=== PATIENT | male | born 1970 | race Caucasian/White ===

== ENCOUNTER 2020-06-16 17:21 | Inpatient (IN) | payer SELFPAY ==
[~2020-06-16] VITALS: Ht 182.9 cm; Wt 102.0 kg
[2020-06-16 17:56] LABS: BASO % 0 % (0-3); EOS % 0 % (0-3); HEMOGLOBIN 17.1 g/dL (13.0-17.5); LYMPH # 1.2 x10^3/uL (1.0-4.8); LYMPH % 5 % (24-48); MEAN CORPUSCULAR HEMOGLOBIN 31 pg (25-35); MEAN CORPUSCULAR HGB CONC 34 g/dL (31-37); MEAN CORPUSCULAR VOLUME 89 fL (79-100); MONO # 0.9 x10^3/uL (0.0-1.1); MONO % 4 % (0-9); NEUT # 21.7 x10^3/uL (1.8-7.7); NEUT % 91 % (31-73); PLATELET COUNT 199 x10^3/uL (140-400); RED BLOOD COUNT 5.63 x10^6/uL (4.30-5.70); RED CELL DISTRIBUTION WIDTH 13.6 % (11.5-14.5); WHITE BLOOD COUNT 23.8 x10^3/uL (4.0-11.0)
[2020-06-16 18:10] LABS: CALCIUM 9.2 mg/dL (8.5-10.1); CREATININE 1.4 mg/dL (0.7-1.3); GFR 53.6; POTASSIUM 3.6 mmol/L (3.5-5.1)
[2020-06-16 18:15] LABS: % BANDS 1 % (0-9); % LYMPHS 7 % (24-48); % MONOS 1 % (0-10); % SEGS 91 % (35-66); PLT ESTIMATE ADEQUATE (ADEQUATE)
[2020-06-16] MEDS ORDERED: PIPERACILLIN/TAZOBACTAM 3.375 GM in IV NORMAL SALINE 50ML 50 ML IV ONE (18:15)
[2020-06-16] MEDS ORDERED: VANCOMYCIN 1.5 GM in IV NORMAL SALINE 500ML BAG 500 ML IV ONE (18:15)
[2020-06-16] MEDS ORDERED: IV NORMAL SALINE 1000ML BAG 1,000 ML IV ONE ×2 (18:15)
[2020-06-16 18:16] LABS: ALBUMIN 4.3 g/dL (3.4-5.0); ALBUMIN/GLOBULIN RATIO 1.2 (1.0-1.7); MAGNESIUM 2.7 mg/dL (1.8-2.4); TOTAL BILIRUBIN 0.3 mg/dL (0.2-1.0)
[2020-06-16 18:19] LABS: BILIRUBIN,URINE NEGATIVE (NEG); CLARITY,URINE CLOUDY; COLOR,URINE YELLOW; NITRITE,URINE NEGATIVE (NEG); PROTEIN,URINE 30 mg/dL (NEG-TRACE); UROBILINOGEN,URINE 0.2 mg/dL (0.2 mg/dL)
[2020-06-16 18:24] LABS: ACETAMIN < 2 mcg/ml (10-30); ETHANOL < 10 mg/dL (0-10); SALIC < 2.8 mg/dL (2.8-20.0)
[2020-06-16 18:24] LABS: BARBITURATES NEG (NEG); BENZODIAZEPINES NEG (NEG); CANNABINOIDS POS (NEG); COCAINE NEG (NEG); METHADONE NEG (NEG); OPIATES NEG (NEG); PHENCYCLIDINE NEG (NEG)
[2020-06-16 18:25] LABS: AMPHETAMINE/METHAMPHETAMINE NEG (NEG)
--- NOTE | 2020-06-16 18:27 | RAD ---
XR CHEST 1V History: Reason: AMS / Spl. Instructions: / History: Comparison: None. Findings: No consolidation or pleural effusion. Normal heart size. No pneumothorax. Mild elevation the right he midiaphragm. Impression: 1. No acute cardiopulmonary process. Electronically signed by: Breezy Pagan DO (06/16/2020 6:24 PM) [facility] [place]
[2020-06-16 18:28] LABS: AMORPHOUS SEDIMENT,UR PRESENT /HPF; BACTERIA,URINE 0 /HPF (0-FEW); GRANULAR CASTS,URINE MODERATE /HPF; HYALINE CASTS, URINE MODERATE /HPF
[2020-06-16] MEDS ORDERED: VANCOMYCIN 2 GM in IV NORMAL SALINE 500ML BAG 500 ML IV ONE (18:30)
--- NOTE | 2020-06-16 18:42 | RAD ---
CT HEAD AND C-SPINE WO History: Reason: AMS / Spl. Instructions: / History: . Pain Comparison: None. Technique: Noncontrast CT imaging was performed of the head and cervical spine. Coronal and sagittal reconstructions were performed. Exposure: One or more of the following individualized dose reduction techniques were utilized for thi s examination: 1. Automated exposure control 2. Adjustment of the mA and/or kV according to patient size 3. Use of iterative reconstruction technique. Findings: Head CT: No intracranial hemorrhage. No mass effect. No hydrocephalus. Right lateral scalp soft tissue swelling. Imaged orbits are unremarkable. Polypoid mucosal thickening within the right frontal sinus with near complete opacification. Thickening within the right frontal ethmoidal recess. Left frontal sinus muco us retention cyst or polyp. No acute calvarial fracture. Cervical spine CT: Normal vertebral body height and alignment. No fracture. Mild cervical spondylosis most prominent C5-C6. Soft tissues unremarkable. Impression: Head CT: 1. No acute intracranial abnormality. 2. Right frontal sinus disease. Cervical spine CT: 1. No acute fracture or subluxation of the cervical spine. Electronically signed by: Breezy Pagan DO (06/16/2020 6:39 PM) [facility]
[2020-06-16] MEDS ORDERED: cefTRIAXone IV Push 2 GM VIAL. IVP ONE (18:45)
[2020-06-16] MEDS ORDERED: DEXTROSE 5% IV ONE (19:00)
[2020-06-16] MEDS ORDERED: IOHEXOL 350 MG/ML 100 ML VIAL. IV ONE (19:00)
[2020-06-16] MEDS ORDERED: CONTRAST GIVEN. MC PRN (19:00)
[2020-06-16] MEDS ORDERED: ACYCLOVIR SODIUM IV ONE (19:00)
--- NOTE | 2020-06-16 19:09 | EKG ---
[facility] [address] [place] [address] Test Date: 2020-06-16 Test Time: 18:06:22 Pat Name: NIKOLAI BOLTON Department: Room: Gender: M [employer]: : 1970 Requested By: ALAN FISHER Order Number: [id number] Reading MD: Measurements Intervals Marks Rate: 79 P: 43 MA: 172 QRS: 48 QRSD: 90 T: 10 QT: 374 QTc: 435 Interpretive Statements SINUS RHYTHM ATRIAL PREMATURE COMPLEX(ES) OTHERWISE NORMAL ECG RI6.02 No previous ECG available for comparison
--- NOTE | 2020-06-16 19:29 | RAD ---
PQRS Compliance Statement: One or more of the following individualized dose reduction techniques were utilized for this examinat ion: 1. Automated exposure control 2. Adjustment of the mA and/or kV according to patient size 3. Use of iterative reconstruction technique CTA CHEST_ABDOMEN_AND PELVIS 06/16/2020 7:10 PM INDICATION: Sepsis COMPARISON: None available TECHNIQUE: Multiple axial CT angiographic images of the chest, abdomen and pelvis were obtained after the intravenous administration of 90 mL Omnipaque 350. Coronal and sagittal reformats are provided. Maximum intensity projection images are provided. FINDINGS: Inadequate opacification of pulmonary arterial system to assess for distal lobar, segmental and subse gmental pulmonary artery emboli. No main or central pulmonary identified. Heart size is within normal limits. Thyroid gland is normal in appearance. No pathologically enlarged thoracic lymph nodes. Ther e is subsegmental atelectasis in the super segment right lower lobe. No suspicious solid noncalcified pulmonary nodules. No pleural effusions, pulmonary vascular congestion or pneumothorax. No acutely d isplaced rib fractures. Clavicles are intact. Scapula are intact. Sternum is intact. Heart size withi n normal limits. Thoracic aorta is normal in course and caliber. No aortic dissection. Brachiocephali c vessels are patent. Evaluation of the abdomen is limited by artifact associated with patient positioning with arms down. Liver, spleen, adrenal glands, pancreas and gallbladder are normal in appearance. Abdominal aorta is normal in caliber. No suspicious retroperitoneal abnormality is identified. There is no free fluid or free intraperitoneal air. Small and large bowel are normal in caliber. There is no evidence for heidi l obstruction. There are no pericolonic inflammatory changes. A normal, nondilated appendix is visual ized without adjacent inflammatory changes. Simple appearing right renal cyst measures 1.8 cm in inte rpolar right kidney. The kidneys enhance symmetrically. There is no suspicious renal mass. There is n o hydronephrosis. There are no suspected calculi within the kidneys, ureters or urinary bladder. Urin beltran bladder is within normal limits given degree of distention. Prostate and seminal vesicles are nor mal in appearance. No suspicious osseous abnormality is identified. IMPRESSION: 1. No central or main pulmonary embolus with limited evaluation of the lobar, segmental and subsegmen aletha pulmonary arteries. No focal airspace consolidation is identified. 2. No acute abnormality involving the abdomen and pelvis. No bowel obstruction or inflammation. 3. Simple appearing right renal cyst measures 1.8 cm. 4. No abdominal or thoracic aortic aneurysm or dissection. Electronically signed by: Danielle Roberto MD (06/16/2020 7:26 PM) [facility]
[2020-06-16] MEDS ORDERED: fentaNYL PF VIAL 100 MCG/2 ML VIAL IVP ONE (22:30)
[2020-06-16 23:51] LABS: CSF CLARITY CLEAR; CSF COLOR COLORLESS
[2020-06-16 23:52] LABS: CSF RBC COUNT 5 /cmm (Not Established); CSF WBC COUNT 2 /cmm (Not Established)
--- NOTE | 2020-06-16 23:56 | PHYS DOC ---
Past Medical History Past Medical History: Other Additional Past Medical Histor: "MALARIA" Past Surgical History: Other Additional Past Surgical Histo: LYMPH NODE IN GROIN REMOVED Smoking Status: Never Smoker Alcohol Use: Occasionally Adult General Chief Complaint Chief Complaint: TRAUMA ALERT HPI HPI Patient is a 50 year old male with a known past medical history of malaria presents emergency department for altered mental status and a possible fall. Currently EMS the patient was found on the ground after he had been interacting with . Bystanders state that the patient had become dizzy was complaining of some lightheadedness when he fell to the ground and had. Of unresponsiveness. Not sure if the patient had a seizure-like episode the patient does note that he did bite his tongue and on arrival is complaining of headache and neck pain. Unsure source. Patient denies any recent travel, sick contacts, recent fever or illness. Does complain of mild abdominal pain. Review of Systems Review of Systems Constitutional: Denies fever or chills [] Eyes: Denies change in visual acuity, redness, or eye pain [] HENT: Denies nasal congestion or sore throat [] Respiratory: Denies cough or shortness of breath [] Cardiovascular: No additional information not addressed in HPI [] GI: Denies abdominal pain, nausea, vomiting, bloody stools or diarrhea [] : Denies dysuria or hematuria [] Musculoskeletal: Denies back pain or joint pain [] Integument: Denies rash or skin lesions [] Neurologic: Denies headache, focal weakness or sensory changes [] Endocrine: Denies polyuria or polydipsia [] All other systems were reviewed and found to be within normal limits, except as documented in this note. Current Medications Current Medications Current Medications Medications (Trade) Dose Ordered Sig/Neri Start Time Stop Time Status Last Admin Dose Admin Acetaminophen (Tylenol) 1,000 mg 1X ONCE 06/17/20 03:45 06/17/20 03:52 DC 06/17/20 03:48 1,000 MG Acyclovir Sodium 780 mg/Dextrose 265.6 ml @ 265.6 mls/ hr ONCE ONCE 06/16/20 19:00 06/16/20 19:59 DC 06/16/20 19:11 265.6 MLS/HR Ceftriaxone Sodium (Rocephin) 2 gm 1X ONCE 06/16/20 18:45 06/16/20 18:46 DC 06/16/20 19:09 2 GM Fentanyl Citrate (Fentanyl 2ml Vial) 100 mcg 1X ONCE 06/16/20 22:30 06/16/20 22:31 DC 06/16/20 22:32 100 MCG Info (CONTRAST GIVEN -- Rx MONITORING) 1 each PRN DAILY PRN 06/16/20 19:00 06/18/20 18:59 Iohexol (Omnipaque 350 Mg/ml) 90 ml 1X ONCE 06/16/20 19:00 06/16/20 19:01 DC 06/16/20 19:12 90 ML Piperacillin Sod/ Tazobactam Sod 3.375 gm/Sodium Chloride 50 ml @ 100 mls/hr 1X ONCE 06/16/20 18:15 06/16/20 18:37 DC Quinine Sulfate (Qualaquin) 324 mg ONCE ONCE 06/17/20 00:30 06/17/20 00:31 DC 06/17/20 01:07 324 MG Sodium Chloride 1,000 ml @ 1,000 mls/hr 1X ONCE 06/17/20 00:30 06/17/20 01:29 DC 06/17/20 00:40 1,000 MLS/HR Vancomycin HCl 1.5 gm/Sodium Chloride 500 ml @ 250 mls/hr 1X ONCE 06/16/20 18:15 06/16/20 20:14 UNV Vancomycin HCl 2 gm/Sodium Chloride 500 ml @ 250 mls/hr 1X ONCE 06/16/20 18:30 06/16/20 20:29 DC 06/16/20 19:47 250 MLS/HR Allergies Allergies Allergies Coded Allergies Type Severity Reaction Last Updated Verified No Known Drug Allergies 06/16/20 No Physical Exam Physical Exam Constitutional: Well developed, well nourished, no acute distress, non-toxic appearance. [] HENT: Normocephalic, right posterior scalp cephalhematoma, bilateral external ears normal, oropharynx moist, no oral exudates, nose normal. Diffuse facial ecchymosis and swelling with mild petechiae Eyes: PERRLA, EOMI, conjunctiva normal, no discharge. [] Neck: Normal range of motion, midline C4 tenderness, supple, no stridor. [] Cardiovascular:Heart rate regular rhythm, no murmur [] Lungs & Thorax: Bilateral breath sounds clear to auscultation [] Abdomen: Bowel sounds normal, soft, moderate midepigastric tenderness, no masses, no pulsatile masses. [] Skin: Warm, dry, no erythema, no rash. [] Back: No tenderness, no CVA tenderness. [] Extremities: No tenderness, no cyanosis, no clubbing, ROM intact, no edema. [] Neurologic: Alert and oriented X 3, normal motor function, normal sensory function, no focal deficits noted. [] Psychologic: Affect normal, judgement normal, mood normal. [] Current Patient Data Vital Signs Vital Signs Date Time Temp Pulse Resp B/P (MAP) Pulse Ox O2 Delivery O2 Flow Rate FiO2 06/17/20 02:55 84 94 Room Air 06/16/20 23:05 110/55 (73) 06/16/20 22:50 18 06/16/20 17:29 98.7 98.7 Lab Values Laboratory Tests Test 06/16/20 17:45 06/16/20 18:11 06/16/20 22:08 06/16/20 22:52 White Blood Count 23.8 x10^3/uL (4.0-11.0) H Red Blood Count 5.63 x10^6/uL (4.30-5.70) Hemoglobin 17.1 g/dL (13.0-17.5) Hematocrit 50.0 % (39.0-53.0) Mean Corpuscular Volume 89 fL (79-100) Mean Corpuscular Hemoglobin 31 pg (25-35) Mean Corpuscular Hemoglobin Concent 34 g/dL (31-37) Red Cell Distribution Width 13.6 % (11.5-14.5) Platelet Count 199 x10^3/uL (140-400) Neutrophils (%) (Auto) 91 % (31-73) H Lymphocytes (%) (Auto) 5 % (24-48) L Monocytes (%) (Auto) 4 % (0-9) Eosinophils (%) (Auto) 0 % (0-3) Basophils (%) (Auto) 0 % (0-3) Neutrophils # (Auto) 21.7 x10^3/uL (1.8-7.7) H Lymphocytes # (Auto) 1.2 x10^3/uL (1.0-4.8) Monocytes # (Auto) 0.9 x10^3/uL (0.0-1.1) Eosinophils # (Auto) 0.0 x10^3/uL (0.0-0.7) Basophils # (Auto) 0.0 x10^3/uL (0.0-0.2) Segmented Neutrophils % 91 % (35-66) H Band Neutrophils % 1 % (0-9) Lymphocytes % 7 % (24-48) L Monocytes % 1 % (0-10) Platelet Estimate Adequate (ADEQUATE) Sodium Level 138 mmol/L (136-145) Potassium Level 3.6 mmol/L (3.5-5.1) Chloride Level 104 mmol/L (98-107) Carbon Dioxide Level 23 mmol/L (21-32) Anion Gap 11 (6-14) Blood Urea Nitrogen 14 mg/dL (8-26) Creatinine 1.4 mg/dL (0.7-1.3) H Estimated GFR (Cockcroft-Gault) 53.6 BUN/Creatinine Ratio 10 (6-20) Glucose Level 124 mg/dL (70-99) H Lactic Acid Level 3.5 mmol/L (0.4-2.0) H 3.0 mmol/L (0.4-2.0) H Calcium Level 9.2 mg/dL (8.5-10.1) Magnesium Level 2.7 mg/dL (1.8-2.4) H Total Bilirubin 0.3 mg/dL (0.2-1.0) Aspartate Amino Transferase (AST) 100 U/L (15-37) H Alanine Aminotransferase (ALT) 189 U/L (16-63) H Alkaline Phosphatase 106 U/L (46-116) Ammonia 40 mcmol/L (11-34) H Troponin I Quantitative < 0.017 ng/mL (0.000-0.055) Total Protein 8.0 g/dL (6.4-8.2) Albumin 4.3 g/dL (3.4-5.0) Albumin/Globulin Ratio 1.2 (1.0-1.7) Salicylates Level < 2.8 mg/dL (2.8-20.0) L Salicylate Last Dose Date Unknown Salicylate Last Dose Time Unknown Acetaminophen Level < 2 mcg/ml (10-30) L Acetaminophen Last Dose Date Unknown Acetaminophen Last Dose Time Unknown Ethyl Alcohol Level < 10 mg/dL (0-10) Urine Collection Type Void Urine Color Yellow Urine Clarity Cloudy Urine pH 5.0 (<5.0-8.0) Urine Specific [place] 1.015 (1.000-1.030) Urine Protein 30 mg/dL (NEG-TRACE) Urine Glucose (UA) Negative mg/dL (NEG) Urine Ketones (Stick) Negative mg/dL (NEG) Urine Blood Moderate (NEG) Urine Nitrite Negative (NEG) Urine Bilirubin Negative (NEG) Urine Urobilinogen Dipstick 0.2 mg/dL (0.2 mg/dL) Urine Leukocyte Esterase Negative (NEG) Urine RBC 11-20 /HPF (0-2) Urine WBC 11-20 /HPF (0-4) Urine Squamous Epithelial Cells Few /LPF Urine Amorphous Sediment Present /HPF Urine Bacteria 0 /HPF (0-FEW) Urine Hyaline Casts Moderate /HPF Urine Granular Casts Moderate /HPF Urine Opiates Screen Neg (NEG) Urine Methadone Screen Neg (NEG) Urine Barbiturates Neg (NEG) Urine Phencyclidine Screen Neg (NEG) Urine Amphetamine/Methamphetamine Neg (NEG) Urine Benzodiazepines Screen Neg (NEG) Urine Cocaine Screen Neg (NEG) Urine Cannabinoids Screen Pos (NEG) Urine Ethyl Alcohol Neg (NEG) CSF Color Colorless CSF Clarity Clear CSF WBC 2 /cmm (Not Established) CSF RBC 5 /cmm (Not Established) CSF Glucose 82 mg/dL (37-70) H CSF Total Protein 78.0 mg/dL (15.0-45.0) H Laboratory Tests 06/16/20 17:45 Laboratory Tests 06/16/20 17:45 EKG EKG [] Radiology/Procedures Radiology/Procedures [] Course & Med Decision Making Course & Med Decision Making Pertinent Labs and Imaging studies reviewed. (See chart for details) Patient remained originally presented the emergency department due to concern for acute seizure-like activity and head trauma. Patient did have cephalhematoma in his cervical spine tenderness which raise concern for acute fracture. CT of the head and neck were negative. However patient also noted to have this altered mental status was noted to have significant petechiae over the anterior superior trunk and over the face. This combined with the patient's other symptoms raise concern for acute meningitis or other significant i nfection. Patient was afebrile. Initial work-up did demonstrate acute leukocytosis severe to 23. Labs also demonstrated acute elevation in liver enzymes, lactic acidosis of 3.5 was worsening on arrival and an elevated creatinine. On recognition of this patient was given empiric fluids and IV ant ibiotics however there is concern for acute meningitis so lumbar puncture was performed here currently awaiting results. There is also significant consideration for possible recurrence of the patient's malaria given the constellation of symptoms. Dragon Disclaimer Dragon Disclaimer This electronic medical record was generated, in whole or in part, using a voice recognition dictation system. Departure Departure Impression: Primary Impression: Altered mental status Disposition: 09 ADMITTED INPT THIS HOSP Condition: CRITICAL Referrals: NO PCP (PCP) LOLA DUTTON MD Jun 16, 2020 23:56
[2020-06-17] MEDS ORDERED: quiNINE 324 MG CAPSULE. PO ONE (00:30)
[2020-06-17] MEDS ORDERED: IV NORMAL SALINE 1000ML BAG 1,000 ML IV ONE (00:30)
[2020-06-17] MEDS ORDERED: ACETAMINOPHEN 500 MG TABLET PO ONE (03:45)
[2020-06-17] MEDS ORDERED: ONDANSETRON PF 4 MG/2 ML VIAL. IV PRN (05:00)
[2020-06-17] MEDS ORDERED: MORPHINE SULFATE 4 MG/ML VIAL. IV PRN (05:00)
[2020-06-17] MEDS: quiNINE 324 MG CAPSULE. PO SCH ×3 (05:49→21:20)
[2020-06-17] MEDS ORDERED: DEXTROSE 5% IV SCH (06:00)
[2020-06-17] MEDS ORDERED: ACYCLOVIR SODIUM IV SCH (06:00)
[2020-06-17 07:00] VITALS: BP 97/64
--- NOTE | 2020-06-17 08:18 | PDOC1 ---
History and Physical Date of Service: DOS: DATE: 06/17/20 TIME: 08:13 Chief Complaint: Chief Complain: AMS History of Present Illness: HPI: 50 year old male with a known past medical history of malaria presents emergency department for altered mental status and a possible fall. Currently EMS the patient was found on the ground after he had been interacting with . Bystanders state that the patient had become dizzy was complaining of some lightheadedness when he fell to the ground and had. Of unresponsiveness. Not sure if the patient had a seizure-like episode the patient does note that he did bite his tongue and on arrival is complaining of headache and neck pain. Unsure source. Patient denies any recent travel, sick contacts, recent fever or illness. Does complain of mild abdominal pain. Past Medical/Surgical History: PMH/PSH: Past Medical History: "MALARIA" Past Surgical History: LYMPH NODE IN GROIN REMOVED Allergies: Allergies: Coded Allergies: No Known Drug Allergies (Unverified , 06/16/20) Family History: Family History: Reviewed with no relevant findings Social History: Social History: Smoking Status: Never Smoker Alcohol Use: Occasionally Current Medications: Current Medications Current Medications Sodium Chloride 1,000 ml @ 1,000 mls/hr 1X ONCE IV Last administered on at 18:34; Start 06/16/20 at 18:15; Stop 06/16/20 at 19:14; Status DC Sodium Chloride 1,000 ml @ 1,000 mls/hr 1X ONCE IV Last administered on 06/16/20at 19:10; Start 06/16/20 at 18:15; Stop 06/16/20 at 19:14; Status DC Piperacillin Sod/ Tazobactam Sod 3.375 gm/Sodium Chloride 50 ml @ 100 mls/hr 1X ONCE IV ; Start 06/16/20 at 18:15; Stop 06/16/20 at 18:37; Status DC Vancomycin HCl 1.5 gm/Sodium Chloride 500 ml @ 250 mls/hr 1X ONCE IV ; Start 06/16/20 at 18:15; Stop 06/16/20 at 20:14; Status UNV Vancomycin HCl 2 gm/Sodium Chloride 500 ml @ 250 mls/hr 1X ONCE IV Last administered on 06/16/20at 19:47; Start 06/16/20 at 18:30; Stop 06/16/20 at 20:29; Status DC Ceftriaxone Sodium (Rocephin) 2 gm 1X ONCE IVP Last administered on 06/16/20at 19:09; Start 06/16/20 at 18:45; Stop 06/16/20 at 18:46; Status DC Acyclovir Sodium 780 mg/Dextrose 265.6 ml @ 265.6 mls/ hr Q8HRS IV Last administered on 06/17/20at 05:49; Start 06/17/20 at 06:00 Acyclovir Sodium 780 mg/Dextrose 265.6 ml @ 265.6 mls/ hr ONCE ONCE IV Last administered on 06/16/20at 19:11; Start 06/16/20 at 19:00; Stop 06/16/20 at 19:59; Status DC Iohexol (Omnipaque 350 Mg/ml) 90 ml 1X ONCE IV Last administered on 06/16/20at 19:12; Start 06/16/20 at 19:00; Stop 06/16/20 at 19:01; Status DC Info (CONTRAST GIVEN -- Rx MONITORING) 1 each PRN DAILY PRN MC SEE COMMENTS; Start 06/16/20 at 19:00; Stop 06/18/20 at 18:59 Fentanyl Citrate (Fentanyl 2ml Vial) 100 mcg 1X ONCE IVP Last administered on 06/16/20at 22:32; Start 06/16/20 at 22:30; Stop 06/16/20 at 22:31; Status DC Quinine Sulfate (Qualaquin) 324 mg Q8HRS PO Last administered on 06/17/20at 05:49; Start 06/17/20 at 06:00 Sodium Chloride 1,000 ml @ 1,000 mls/hr 1X ONCE IV Last administered on 06/17/20at 00:40; Start 06/17/20 at 00:30; Stop 06/17/20 at 01:29; Status DC Quinine Sulfate (Qualaquin) 324 mg ONCE ONCE PO Last administered on 06/17/20at 01:07; Start 06/17/20 at 00:30; Stop 06/17/20 at 00:31; Status DC Acetaminophen (Tylenol) 1,000 mg 1X ONCE PO Last administered on 06/17/20at 03:48; Start 06/17/20 at 03:45; Stop 06/17/20 at 03:52; Status DC Ondansetron HCl (Zofran) 4 mg PRN Q8HRS PRN IV NAUSEA/VOMITING; Start 06/17/20 at 05:00; Stop 06/18/20 at 04:59 Morphine Sulfate (Morphine Sulfate) 4 mg PRN Q2HR PRN IV PAIN; Start 06/17/20 at 05:00; Stop 06/18/20 at 04:59 ROS: Review of Systems Review of System REVIEW OF SYSTEMS: GENERAL: Denies weakness SKIN: No bruising, hair changes or rashes. EYES: No blurred, double or loss of vision. NOSE AND THROAT: No history of nosebleeds, hoarseness or sore throat. HEART: No history of palpitations, chest pain or shortness of breath on exertion. LUNGS: Denies cough, hemoptysis, wheezing or shortness of breath. GASTROINTESTINAL: Denies changes in appetite, nausea, vomiting, diarrhea or constipation. GENITOURINARY: No history of frequency, urgency, hesitancy or nocturia. NEUROLOGIC: Denies history of numbness, tingling, or tremor. PSYCHIATRIC: No history of panic, anxiety or depression. ENDOCRINE: No history of heat or cold intolerance, polyuria or polydipsia. EXTREMITIES: Denies joint pain, pain on walking or stiffness. Physical Exam: Vital Signs: Vital Signs Date Time Temp Pulse Resp B/P (MAP) Pulse Ox O2 Delivery O2 Flow Rate FiO2 06/17/20 06:11 74 138/69 (92) 97 Room Air 06/16/20 22:50 18 06/16/20 17:29 98.7 98.7 Physcial Exam: GEN: No apparent distress. Alert and oriented HEENT: Normal cephalic, atraumatic, external auditory canals are patent EYES: Extraocular muscles are intact, pupil are equally round and reactive to light and accommodation MUSCULOSKELETAL: Well developed , well nourished, good range of motion ENDOCRINE: No thyromegaly was palpated LYMPHATICS: No cervical chain or axillary nodes were noted HEMATOPOIETIC: No bruising NECK: Supple, no JVD, no thyromegaly was noted LUNGS: Clear to auscultation in all lung lemos without rhonchi or wheezing HEART: RRR, S!, S2 present. Peripheral pulses intact, no obvious murmurs noted ABDOMEN: Soft, nontender. Positive bowel sounds, no organomegaly, normal bowel sounds EXTREMITIES: Without clubbing, cyanosis, or edema. Pedal pulses intact. Negative Homans sign NEUROLOGIC: Normal speech and tone. A&O x 3, moves all extremities, no ob vious focal deficits PSYCHIATRIC: Normal affect, normal mood. Stable SKIN: No ulcerations or rashes, good skin turgor, no jaundice VASCULAR: Good capillary refill, neurovascular bundle appears to be intact Labs: Labs: Laboratory Tests Test 06/16/20 17:45 06/16/20 18:11 06/16/20 22:08 06/16/20 22:52 White Blood Count 23.8 x10^3/uL (4.0-11.0) Red Blood Count 5.63 x10^6/uL (4.30-5.70) Hemoglobin 17.1 g/dL (13.0-17.5) Hematocrit 50.0 % (39.0-53.0) Mean Corpuscular Volume 89 fL (79-100) Mean Corpuscular Hemoglobin 31 pg (25-35) Mean Corpuscular Hemoglobin Concent 34 g/dL (31-37) Red Cell Distribution Width 13.6 % (11.5-14.5) Platelet Count 199 x10^3/uL (140-400) Neutrophils (%) (Auto) 91 % (31-73) Lymphocytes (%) (Auto) 5 % (24-48) Monocytes (%) (Auto) 4 % (0-9) Eosinophils (%) (Auto) 0 % (0-3) Basophils (%) (Auto) 0 % (0-3) Neutrophils # (Auto) 21.7 x10^3/uL (1.8-7.7) Lymphocytes # (Auto) 1.2 x10^3/uL (1.0-4.8) Monocytes # (Auto) 0.9 x10^3/uL (0.0-1.1) Eosinophils # (Auto) 0.0 x10^3/uL (0.0-0.7) Basophils # (Auto) 0.0 x10^3/uL (0.0-0.2) Segmented Neutrophils % 91 % (35-66) Band Neutrophils % 1 % (0-9) Lymphocytes % 7 % (24-48) Monocytes % 1 % (0-10) Platelet Estimate Adequate (ADEQUATE) Sodium Level 138 mmol/L (136-145) Potassium Level 3.6 mmol/L (3.5-5.1) Chloride Level 104 mmol/L (98-107) Carbon Dioxide Level 23 mmol/L (21-32) Anion Gap 11 (6-14) Blood Urea Nitrogen 14 mg/dL (8-26) Creatinine 1.4 mg/dL (0.7-1.3) Estimated GFR (Cockcroft-Gault) 53.6 BUN/Creatinine Ratio 10 (6-20) Glucose Level 124 mg/dL (70-99) Lactic Acid Level 3.5 mmol/L (0.4-2.0) 3.0 mmol/L (0.4-2.0) Calcium Level 9.2 mg/dL (8.5-10.1) Magnesium Level 2.7 mg/dL (1.8-2.4) Total Bilirubin 0.3 mg/dL (0.2-1.0) Aspartate Amino Transf (AST/SGOT) 100 U/L (15-37) Alanine Aminotransferase (ALT/SGPT) 189 U/L (16-63) Alkaline Phosphatase 106 U/L (46-116) Ammonia 40 mcmol/L (11-34) Troponin I Quantitative < 0.017 ng/mL (0.000-0.055) Total Protein 8.0 g/dL (6.4-8.2) Albumin 4.3 g/dL (3.4-5.0) Albumin/Globulin Ratio 1.2 (1.0-1.7) Salicylates Level < 2.8 mg/dL (2.8-20.0) Salicylate Last Dose Date Unknown Salicylate Last Dose Time Unknown Acetaminophen Level < 2 mcg/ml (10-30) Acetaminophen Last Dose Date Unknown Acetaminophen Last Dose Time Unknown Ethyl Alcohol Level < 10 mg/dL (0-10) Urine Collection Type Void Urine Color Yellow Urine Clarity Cloudy Urine pH 5.0 (<5.0-8.0) Urine Specific [place] 1.015 (1.000-1.030) Urine Protein 30 mg/dL (NEG-TRACE) Urine Glucose (UA) Negative mg/dL (NEG) Urine Ketones (Stick) Negative mg/dL (NEG) Urine Blood Moderate (NEG) Urine Nitrite Negative (NEG) Urine Bilirubin Negative (NEG) Urine Urobilinogen Dipstick 0.2 mg/dL (0.2 mg/dL) Urine Leukocyte Esterase Negative (NEG) Urine RBC 11-20 /HPF (0-2) Urine WBC 11-20 /HPF (0-4) Urine Squamous Epithelial Cells Few /LPF Urine Amorphous Sediment Present /HPF Urine Bacteria 0 /HPF (0-FEW) Urine Hyaline Casts Moderate /HPF Urine Granular Casts Moderate /HPF Urine Opiates Screen Neg (NEG) Urine Methadone Screen Neg (NEG) Urine Barbiturates Neg (NEG) Urine Phencyclidine Screen Neg (NEG) Urine Amphetamine/Methamphetamine Neg (NEG) Urine Benzodiazepines Screen Neg (NEG) Urine Cocaine Screen Neg (NEG) Urine Cannabinoids Screen Pos (NEG) Urine Ethyl Alcohol Neg (NEG) CSF Color Colorless CSF Clarity Clear CSF WBC 2 /cmm (Not Established) CSF RBC 5 /cmm (Not Established) CSF Glucose 82 mg/dL (37-70) CSF Total Protein 78.0 mg/dL (15.0-45.0) Laboratory Tests Test 06/16/20 17:45 06/16/20 18:11 06/16/20 22:08 06/16/20 22:52 White Blood Count 23.8 x10^3/uL (4.0-11.0) Red Blood Count 5.63 x10^6/uL (4.30-5.70) Hemoglobin 17.1 g/dL (13.0-17.5) Hematocrit 50.0 % (39.0-53.0) Mean Corpuscular Volume 89 fL (79-100) Mean Corpuscular Hemoglobin 31 pg (25-35) Mean Corpuscular Hemoglobin Concent 34 g/dL (31-37) Red Cell Distribution Width 13.6 % (11.5-14.5) Platelet Count 199 x10^3/uL (140-400) Neutrophils (%) (Auto) 91 % (31-73) Lymphocytes (%) (Auto) 5 % (24-48) Monocytes (%) (Auto) 4 % (0-9) Eosinophils (%) (Auto) 0 % (0-3) Basophils (%) (Auto) 0 % (0-3) Neutrophils # (Auto) 21.7 x10^3/uL (1.8-7.7) Lymphocytes # (Auto) 1.2 x10^3/uL (1.0-4.8) Monocytes # (Auto) 0.9 x10^3/uL (0.0-1.1) Eosinophils # (Auto) 0.0 x10^3/uL (0.0-0.7) Basophils # (Auto) 0.0 x10^3/uL (0.0-0.2) Segmented Neutrophils % 91 % (35-66) Band Neutrophils % 1 % (0-9) Lymphocytes % 7 % (24-48) Monocytes % 1 % (0-10) Platelet Estimate Adequate (ADEQUATE) Sodium Level 138 mmol/L (136-145) Potassium Level 3.6 mmol/L (3.5-5.1) Chloride Level 104 mmol/L (98-107) Carbon Dioxide Level 23 mmol/L (21-32) Anion Gap 11 (6-14) Blood Urea Nitrogen 14 mg/dL (8-26) Creatinine 1.4 mg/dL (0.7-1.3) Estimated GFR (Cockcroft-Gault) 53.6 BUN/Creatinine Ratio 10 (6-20) Glucose Level 124 mg/dL (70-99) Lactic Acid Level 3.5 mmol/L (0.4-2.0) 3.0 mmol/L (0.4-2.0) Calcium Level 9.2 mg/dL (8.5-10.1) Magnesium Level 2.7 mg/dL (1.8-2.4) Total Bilirubin 0.3 mg/dL (0.2-1.0) Aspartate Amino Transf (AST/SGOT) 100 U/L (15-37) Alanine Aminotransferase (ALT/SGPT) 189 U/L (16-63) Alkaline Phosphatase 106 U/L (46-116) Ammonia 40 mcmol/L (11-34) Troponin I Quantitative < 0.017 ng/mL (0.000-0.055) Total Protein 8.0 g/dL (6.4-8.2) Albumin 4.3 g/dL (3.4-5.0) Albumin/Globulin Ratio 1.2 (1.0-1.7) Salicylates Level < 2.8 mg/dL (2.8-20.0) Salicylate Last Dose Date Unknown Salicylate Last Dose Time Unknown Acetaminophen Level < 2 mcg/ml (10-30) Acetaminophen Last Dose Date Unknown Acetaminophen Last Dose Time Unknown Ethyl Alcohol Level < 10 mg/dL (0-10) Urine Collection Type Void Urine Color Yellow Urine Clarity Cloudy Urine pH 5.0 (<5.0-8.0) Urine Specific [place] 1.015 (1.000-1.030) Urine Protein 30 mg/dL (NEG-TRACE) Urine Glucose (UA) Negative mg/dL (NEG) Urine Ketones (Stick) Negative mg/dL (NEG) Urine Blood Moderate (NEG) Urine Nitrite Negative (NEG) Urine Bilirubin Negative (NEG) Urine Urobilinogen Dipstick 0.2 mg/dL (0.2 mg/dL) Urine Leukocyte Esterase Negative (NEG) Urine RBC 11-20 /HPF (0-2) Urine WBC 11-20 /HPF (0-4) Urine Squamous Epithelial Cells Few /LPF Urine Amorphous Sediment Present /HPF Urine Bacteria 0 /HPF (0-FEW) Urine Hyaline Casts Moderate /HPF Urine Granular Casts Moderate /HPF Urine Opiates Screen Neg (NEG) Urine Methadone Screen Neg (NEG) Urine Barbiturates Neg (NEG) Urine Phencyclidine Screen Neg (NEG) Urine Amphetamine/Methamphetamine Neg (NEG) Urine Benzodiazepines Screen Neg (NEG) Urine Cocaine Screen Neg (NEG) Urine Cannabinoids Screen Pos (NEG) Urine Ethyl Alcohol Neg (NEG) CSF Color Colorless CSF Clarity Clear CSF WBC 2 /cmm (Not Established) CSF RBC 5 /cmm (Not Established) CSF Glucose 82 mg/dL (37-70) CSF Total Protein 78.0 mg/dL (15.0-45.0) Images: Images CXR Impression: 1. No acute cardiopulmonary process. CT HEAD Impression: Head CT: 1. No acute intracranial abnormality. 2. Right frontal sinus disease. Cervical spine CT: 1. No acute fracture or subluxation of the cervical spine. CT CHEST IMPRESSION: 1. No central or main pulmonary embolus with limited evaluation of the lobar, segmental and subsegmental pulmonary arteries. No focal airspace consolidation is identified. 2. No acute abnormality involving the abdomen and pelvis. No bowel obstruction or inflammation. 3. Simple appearing right renal cyst measures 1.8 cm. 4. No abdominal or thoracic aortic aneurysm or dissection. Assessment/Plan Assessment/Plan Acute metabolic encephalopathy Acute delirium or confusional state due to infectious versus toxic versus metabolic disturbance JANEL due to vasomotor nephropathy Lactic acidemia Elevated ammonia levels Transaminitis Reactive leukocytosis Seizure versus convulsive syncope History of malaria in 1990 No obvious centrally acting medications currently. No obvious signs of infection on physical exam. No fevers or nuchal rigidity. CT head is negative for acute etiology. No history or signs of trauma Pending TSH, B12, folate levels Continue IV fluids ID consult Neurology consult Lovenox for DVT prophylaxis Protonix GI prophylaxis ADA diet Full code Discussed with RN and SW Dispo inpatient management as above Justifications for Admission Other Justification RADHA PURI MD Jun 17, 2020 08:18
--- NOTE | 2020-06-17 12:23 | CONS ---
DATE OF CONSULTATION: 06/17/2020 REQUESTING PHYSICIAN: Adolph Casanova MD. REASON FOR CONSULTATION: Change in mental status. HISTORY OF PRESENT ILLNESS: This is a 50-year-old gentleman who says he is very healthy. He does not take any medication normally, who actually in the morning dropped the daughter to the school. Apparently, by noon, he was in the couch and he was found unresponsive around 4 or 4:30 when the came to the home. The patient does not remember what happened. The patient remembers going to the restroom and then came back and since then, he does not remember. Apparently, he bit his tongue. He has bloodshot eyes, bruising in the head as well as into the body as if he had fallen. When he was brought in, he was complaining of headache and neck pain. The patient underwent a lumbar puncture and CAT scan of the head, which were unremarkable. In fact, CT scan of the chest, abdomen and pelvis was essentially unremarkable for any acute changes. The patient has been alert, awake and appropriate. The patient has difficulty speaking because of the injury to the tongue, but he is alert, awake, appropriate and able to communicate properly. White count is 23,000, creatinine 1.4, lactic acid up to 3.5, elevated ALT and AST. Drug screen was positive with marijuana. Urinalysis unremarkable. CSF showed WBC of 2, RBC of 5. The patient was not reporting any sickness in the morning; as he said, he even dropped the daughter to the school. He had no respiratory symptoms, no fever or any other complaints. PAST MEDICAL HISTORY: When he was in the service station in [facility], where he had falciparum and vivax both malaria in 1990. SOCIAL HISTORY: Negative for smoking. Occasional alcohol use and occasional marijuana use. The patient also denies any recent travel history. REVIEW OF SYSTEMS: As in HPI. All other systems reviewed are negative. PHYSICAL EXAMINATION: GENERAL: Alert, oriented gentleman, not in distress. VITAL SIGNS: Stable, afebrile. HEENT: Both pupils are round and reacting. Conjunctivae are congested bilaterally. There are no large bruises or contusions on the head. The tongue has injury. NECK: Supple, no JVP, no lymphadenopathy. LUNGS: Clear. HEART: S1, S2 regular. ABDOMEN: Benign. EXTREMITIES: No edema, cyanosis. SKIN: Unremarkable, other than some bruising present. NEUROLOGIC: The patient is alert, awake and appropriate. No focal neurologic deficit. LABORATORY DATA: White count is 23,000. BUN and creatinine is 14 and 1.4. Lactic acid 3.5. Rest of the stuff, I mentioned in the HPI as well as CT. IMPRESSION: 1. Unresponsiveness, most likely the patient had seizure. 2. Leukocytosis, likely reactive. 3. Slight lactic acidosis. 4. Elevated liver function tests. 5. History of malaria in 1990. RECOMMENDATIONS: I do not see the need for acyclovir or any antibiotics. Peripheral smear for malaria can be done. Vivax can recur, although this is too long a time for vivax to recur and falciparum does not recur the fact that he has hemoglobin of 17.1, which hemolysis is very unlikely and the presentation for vivax malaria is almost never this way. I would consider consulting Neurology for further investigation for possible seizure. Thank you very much, Dr. Casanova, for giving me the opportunity to participate in this patient's care. MARYJANE ALANIS MD DR: AMELIA/megan JOB#: [id number] / [id number]
--- NOTE | 2020-06-17 12:51 | PDOC2 ---
NEUROLOGY CONSULT Date of Service DOS: DATE: 06/17/20 TIME: 12:45 Reason for Consult Reason for Consult: Possible seizure Referring Physician Referring Physician: Dr. Lowe Source Source: Chart review, Patient History of Present Illness History of Present Illness The patient is a 50-year-old right-handed male who is not sure what happened to him. He fell down and definitely bit his tongue, also later discovered that he had fecal and urinary incontinence. There may been some witnessed convulsive activity. Patient complained of dizziness just before. He says that he has a long history of fainting when he is dehydrated, but felt fine earlier yesterday. He feels unwell now, though. There is no history of stroke, seizure, or head injury. Past Medical History Infectious disease: Other (Malaria) Past Surgical History Past Surgical History: Other (Lymph node removed from groin) Family History Family History: No pertinent hx (Negative for seizures) Social History Social History , occasional beer, occasional marijuana, works in sales, no tobacco Current Medications Current Medications Current Medications Sodium Chloride 1,000 ml @ 1,000 mls/hr 1X ONCE IV Last administered on 06/16/20at 18:34; Start 06/16/20 at 18:15; Stop 06/16/20 at 19:14; Status DC Sodium Chloride 1,000 ml @ 1,000 mls/hr 1X ONCE IV Last administered on 06/16/20at 19:10; Start 06/16/20 at 18:15; Stop 06/16/20 at 19:14; Status DC Piperacillin Sod/ Tazobactam Sod 3.375 gm/Sodium Chloride 50 ml @ 100 mls/hr 1X ONCE IV ; Start 06/16/20 at 18:15; Stop 06/16/20 at 18:37; Status DC Vancomycin HCl 1.5 gm/Sodium Chloride 500 ml @ 250 mls/hr 1X ONCE IV ; Start 06/16/20 at 18:15; Stop 06/16/20 at 20:14; Status UNV Vancomycin HCl 2 gm/Sodium Chloride 500 ml @ 250 mls/hr 1X ONCE IV Last administered on 06/16/20at 19:47; Start 06/16/20 at 18:30; Stop 06/16/20 at 20:29; Status DC Ceftriaxone Sodium (Rocephin) 2 gm 1X ONCE IVP Last administered on 06/16/20at 19:09; Start 06/16/20 at 18:45; Stop 06/16/20 at 18:46; Status DC Acyclovir Sodium 780 mg/Dextrose 265.6 ml @ 265.6 mls/ hr Q8HRS IV Last administered on 06/17/20at 05:49; Start 06/17/20 at 06:00 Acyclovir Sodium 780 mg/Dextrose 265.6 ml @ 265.6 mls/ hr ONCE ONCE IV Last administered on 06/16/20at 19:11; Start 06/16/20 at 19:00; Stop 06/16/20 at 19:59; Status DC Iohexol (Omnipaque 350 Mg/ml) 90 ml 1X ONCE IV Last administered on 06/16/20at 19:12; Start 06/16/20 at 19:00; Stop 06/16/20 at 19:01; Status DC Info (CONTRAST GIVEN -- Rx MONITORING) 1 each PRN DAILY PRN MC SEE COMMENTS; Start 06/16/20 at 19:00; Stop 06/18/20 at 18:59 Fentanyl Citrate (Fentanyl 2ml Vial) 100 mcg 1X ONCE IVP Last administered on 06/16/20at 22:32; Start 06/16/20 at 22:30; Stop 06/16/20 at 22:31; Status DC Quinine Sulfate (Qualaquin) 324 mg Q8HRS PO Last administered on 06/17/20at 05:49; Start 06/17/20 at 06:00 Sodium Chloride 1,000 ml @ 1,000 mls/hr 1X ONCE IV Last administered on 06/17/20at 00:40; Start 06/17/20 at 00:30; Stop 06/17/20 at 01:29; Status DC Quinine Sulfate (Qualaquin) 324 mg ONCE ONCE PO Last administered on 06/17/20at 01:07; Start 06/17/20 at 00:30; Stop 06/17/20 at 00:31; Status DC Acetaminophen (Tylenol) 1,000 mg 1X ONCE PO Last administered on 06/17/20at 03 :48; Start 06/17/20 at 03:45; Stop 06/17/20 at 03:52; Status DC Ondansetron HCl (Zofran) 4 mg PRN Q8HRS PRN IV NAUSEA/VOMITING Last administered on 06/17/20at 10:20; Start 06/17/20 at 05:00; Stop 06/18/20 at 04:59 Morphine Sulfate (Morphine Sulfate) 4 mg PRN Q2HR PRN IV PAIN Last administered on 06/17/20at 10:20; Start 06/17/20 at 05:00; Stop 06/18/20 at 04:59 Acetaminophen (Tylenol) 650 mg PRN Q6HRS PRN PO MILD PAIN / TEMP > 100.3'F; Start 06/17/20 at 12:30 Allergies Allergies: Coded Allergies: No Known Drug Allergies (Unverified , 06/16/20) ROS Review of System Negative for fever, chills, weight loss, shortness of breath, chest pain, indigestion, hematochezia, melena, and dysuria. Full 14-point review of systems is negative. Physical Exam Physical Examination General: Well-developed, well-nourished white male in no acute distress HEENT: Normocephalic. Multiple contusions, bilateral conjunctival hemorrhages. Temporal arteriespulsatile and nontender. Neck: Supple without bruit, no meningismus Musculoskeletal: Stability:see neurologic. Gait exam:see neurologic. Tone:see neurologic.Strength:see neurologic. Neurological: Mental Status:intact, orientation, memory, attention span/concentration, language, fund of knowledge normal. Cranial Nerves:Pupils equal and reactive to light, extraocular movements areintact, visual lemos are full to confrontation. Facial sensation is normal. There is no facial asymmetry. Vestibulo-ocular reflex is intact. Palate elevates and tongue protrudes in midline. All other cranial related problems are negative except as mentioned before.Reflexes:2+ and symmetric with flexor plantar responses. Motor:5/5 strength with normal tone and bulk. Coordination:Finger-nose finger and pash-xf-ruqu testing are normal. Rapid alternating movements and fine finger movements are intact. Gait:Not done, feels dizzy when he sits up. Sensory:Normal pinprick, vibration, light touch, proprioception. Vitals VITALS Vital Signs Date Time Temp Pulse Resp B/P (MAP) Pulse Ox O2 Delivery O2 Flow Rate FiO2 06/17/20 10:20 95 06/17/20 07:00 97.3 84 18 97/64 (75) 97.3 06/17/20 06:11 Room Air Labs Labs Laboratory Tests Test 06/16/20 17:45 06/16/20 18:11 06/16/20 22:08 06/16/20 22:52 White Blood Count 23.8 x10^3/uL (4.0-11.0) Red Blood Count 5.63 x10^6/uL (4.30-5.70) Hemoglobin 17.1 g/dL (13.0-17.5) Hematocrit 50.0 % (39.0-53.0) Mean Corpuscular Volume 89 fL (79-100) Mean Corpuscular Hemoglobin 31 pg (25-35) Mean Corpuscular Hemoglobin Concent 34 g/dL (31-37) Red Cell Distribution Width 13.6 % (11.5-14.5) Platelet Count 199 x10^3/uL (140-400) Neutrophils (%) (Auto) 91 % (31-73) Lymphocytes (%) (Auto) 5 % (24-48) Monocytes (%) (Auto) 4 % (0-9) Eosinophils (%) (Auto) 0 % (0-3) Basophils (%) (Auto) 0 % (0-3) Neutrophils # (Auto) 21.7 x10^3/uL (1.8-7.7) Lymphocytes # (Auto) 1.2 x10^3/uL (1.0-4.8) Monocytes # (Auto) 0.9 x10^3/uL (0.0-1.1) Eosinophils # (Auto) 0.0 x10^3/uL (0.0-0.7) Basophils # (Auto) 0.0 x10^3/uL (0.0-0.2) Segmented Neutrophils % 91 % (35-66) Band Neutrophils % 1 % (0-9) Lymphocytes % 7 % (24-48) Monocytes % 1 % (0-10) Platelet Estimate Adequate (ADEQUATE) Sodium Level 138 mmol/L (136-145) Potassium Level 3.6 mmol/L (3.5-5.1) Chloride Level 104 mmol/L (98-107) Carbon Dioxide Level 23 mmol/L (21-32) Anion Gap 11 (6-14) Blood Urea Nitrogen 14 mg/dL (8-26) Creatinine 1.4 mg/dL (0.7-1.3) Estimated GFR (Cockcroft-Gault) 53.6 BUN/Creatinine Ratio 10 (6-20) Glucose Level 124 mg/dL (70-99) Lactic Acid Level 3.5 mmol/L (0.4-2.0) 3.0 mmol/L (0.4-2.0) Calcium Level 9.2 mg/dL (8.5-10.1) Magnesium Level 2.7 mg/dL (1.8-2.4) Total Bilirubin 0.3 mg/dL (0.2-1.0) Aspartate Amino Transf (AST/SGOT) 100 U/L (15-37) Alanine Aminotransferase (ALT/SGPT) 189 U/L (16-63) Alkaline Phosphatase 106 U/L (46-116) Ammonia 40 mcmol/L (11-34) Troponin I Quantitative < 0.017 ng/mL (0.000-0.055) Total Protein 8.0 g/dL (6.4-8.2) Albumin 4.3 g/dL (3.4-5.0) Albumin/Globulin Ratio 1.2 (1.0-1.7) Salicylates Level < 2.8 mg/dL (2.8-20.0) Salicylate Last Dose Date Unknown Salicylate Last Dose Time Unknown Acetaminophen Level < 2 mcg/ml (10-30) Acetaminophen Last Dose Date Unknown Acetaminophen Last Dose Time Unknown Ethyl Alcohol Level < 10 mg/dL (0-10) Urine Collection Type Void Urine Color Yellow Urine Clarity Cloudy Urine pH 5.0 (<5.0-8.0) Urine Specific [place] 1.015 (1.000-1.030) Urine Protein 30 mg/dL (NEG-TRACE) Urine Glucose (UA) Negative mg/dL (NEG) Urine Ketones (Stick) Negative mg/dL (NEG) Urine Blood Moderate (NEG) Urine Nitrite Negative (NEG) Urine Bilirubin Negative (NEG) Urine Urobilinogen Dipstick 0.2 mg/dL (0.2 mg/dL) Urine Leukocyte Esterase Negative (NEG) Urine RBC 11-20 /HPF (0-2) Urine WBC 11-20 /HPF (0-4) Urine Squamous Epithelial Cells Few /LPF Urine Amorphous Sediment Present /HPF Urine Bacteria 0 /HPF (0-FEW) Urine Hyaline Casts Moderate /HPF Urine Granular Casts Moderate /HPF Urine Opiates Screen Neg (NEG) Urine Methadone Screen Neg (NEG) Urine Barbiturates Neg (NEG) Urine Phencyclidine Screen Neg (NEG) Urine Amphetamine/Methamphetamine Neg (NEG) Urine Benzodiazepines Screen Neg (NEG) Urine Cocaine Screen Neg (NEG) Urine Cannabinoids Screen Pos (NEG) Urine Ethyl Alcohol Neg (NEG) CSF Color Colorless CSF Clarity Clear CSF WBC 2 /cmm (Not Established) CSF RBC 5 /cmm (Not Established) CSF Glucose 82 mg/dL (37-70) CSF Total Protein 78.0 mg/dL (15.0-45.0) Laboratory Tests Test 06/16/20 17:45 06/16/20 18:11 06/16/20 22:08 06/16/20 22:52 White Blood Count 23.8 x10^3/uL (4.0-11.0) Red Blood Count 5.63 x10^6/uL (4.30-5.70) Hemoglobin 17.1 g/dL (13.0-17.5) Hematocrit 50.0 % (39.0-53.0) Mean Corpuscular Volume 89 fL (79-100) Mean Corpuscular Hemoglobin 31 pg (25-35) Mean Corpuscular Hemoglobin Concent 34 g/dL (31-37) Red Cell Distribution Width 13.6 % (11.5-14.5) Platelet Count 199 x10^3/uL (140-400) Neutrophils (%) (Auto) 91 % (31-73) Lymphocytes (%) (Auto) 5 % (24-48) Monocytes (%) (Auto) 4 % (0-9) Eosinophils (%) (Auto) 0 % (0-3) Basophils (%) (Auto) 0 % (0-3) Neutrophils # (Auto) 21.7 x10^3/uL (1.8-7.7) Lymphocytes # (Auto) 1.2 x10^3/uL (1.0-4.8) Monocytes # (Auto) 0.9 x10^3/uL (0.0-1.1) Eosinophils # (Auto) 0.0 x10^3/uL (0.0-0.7) Basophils # (Auto) 0.0 x10^3/uL (0.0-0.2) Segmented Neutrophils % 91 % (35-66) Band Neutrophils % 1 % (0-9) Lymphocytes % 7 % (24-48) Monocytes % 1 % (0-10) Platelet Estimate Adequate (ADEQUATE) Sodium Level 138 mmol/L (136-145) Potassium Level 3.6 mmol/L (3.5-5.1) Chloride Level 104 mmol/L (98-107) Carbon Dioxide Level 23 mmol/L (21-32) Anion Gap 11 (6-14) Blood Urea Nitrogen 14 mg/dL (8-26) Creatinine 1.4 mg/dL (0.7-1.3) Estimated GFR (Cockcroft-Gault) 53.6 BUN/Creatinine Ratio 10 (6-20) Glucose Level 124 mg/dL (70-99) Lactic Acid Level 3.5 mmol/L (0.4-2.0) 3.0 mmol/L (0.4-2.0) Calcium Level 9.2 mg/dL (8.5-10.1) Magnesium Level 2.7 mg/dL (1.8-2.4) Total Bilirubin 0.3 mg/dL (0.2-1.0) Aspartate Amino Transf (AST/SGOT) 100 U/L (15-37) Alanine Aminotransferase (ALT/SGPT) 189 U/L (16-63) Alkaline Phosphatase 106 U/L (46-116) Ammonia 40 mcmol/L (11-34) Troponin I Quantitative < 0.017 ng/mL (0.000-0.055) Total Protein 8.0 g/dL (6.4-8.2) Albumin 4.3 g/dL (3.4-5.0) Albumin/Globulin Ratio 1.2 (1.0-1.7) Salicylates Level < 2.8 mg/dL (2.8-20.0) Salicylate Last Dose Date Unknown Salicylate Last Dose Time Unknown Acetaminophen Level < 2 mcg/ml (10-30) Acetaminophen Last Dose Date Unknown Acetaminophen Last Dose Time Unknown Ethyl Alcohol Level < 10 mg/dL (0-10) Urine Collection Type Void Urine Color Yellow Urine Clarity Cloudy Urine pH 5.0 (<5.0-8.0) Urine Specific [place] 1.015 (1.000-1.030) Urine Protein 30 mg/dL (NEG-TRACE) Urine Glucose (UA) Negative mg/dL (NEG) Urine Ketones (Stick) Negative mg/dL (NEG) Urine Blood Moderate (NEG) Urine Nitrite Negative (NEG) Urine Bilirubin Negative (NEG) Urine Urobilinogen Dipstick 0.2 mg/dL (0.2 mg/dL) Urine Leukocyte Esterase Negative (NEG) Urine RBC 11-20 /HPF (0-2) Urine WBC 11-20 /HPF (0-4) Urine Squamous Epithelial Cells Few /LPF Urine Amorphous Sediment Present /HPF Urine Bacteria 0 /HPF (0-FEW) Urine Hyaline Casts Moderate /HPF Urine Granular Casts Moderate /HPF Urine Opiates Screen Neg (NEG) Urine Methadone Screen Neg (NEG) Urine Barbiturates Neg (NEG) Urine Phencyclidine Screen Neg (NEG) Urine Amphetamine/Methamphetamine Neg (NEG) Urine Benzodiazepines Screen Neg (NEG) Urine Cocaine Screen Neg (NEG) Urine Cannabinoids Screen Pos (NEG) Urine Ethyl Alcohol Neg (NEG) CSF Color Colorless CSF Clarity Clear CSF WBC 2 /cmm (Not Established) CSF RBC 5 /cmm (Not Established) CSF Glucose 82 mg/dL (37-70) CSF Total Protein 78.0 mg/dL (15.0-45.0) Images Images CT HEAD AND C-SPINE WO History: Reason: AMS / Spl. Instructions: / History: . Pain Comparison: None. Technique: Noncontrast CT imaging was performed of the head and cervical spine. Coronal and sagittal reconstructions were performed. Exposure: One or more of the following individualized dose reduction techniques were utilized for this examination: 1. Automated exposure control 2. Adjustment of the mA and/or kV according to patient size 3. Use of iterative reconstruction technique. Findings: Head CT: No intracranial hemorrhage. No mass effect. No hydrocephalus. Right lateral scalp soft tissue swelling. Imaged orbits are unremarkable. Polypoid mucosal thickening within the right frontal sinus with near complete opacification. Thickening within the right frontal ethmoidal recess. Left frontal sinus mucous retention cyst or polyp. No acute calvarial fracture. Cervical spine CT: Normal vertebral body height and alignment. No fracture. Mild cervical spondylosis most prominent C5-C6. Soft tissues unremarkable. Impression: Head CT: 1. No acute intracranial abnormality. 2. Right frontal sinus disease. Cervical spine CT: 1. No acute fracture or subluxation of the cervical spine. Assessment/Plan Assessment/Plan Impression: New onset seizure versus convulsive syncope due to general illness. Note normal lumbar puncture Leukocytosis, slight lactic acidosis, elevated liver function tests, history of malaria in 1990. Recommendations: Brain MRI Electroencephalogram Treat medical issues Hold off on starting anticonvulsants Rehabilitation modalities I told patient he still should not drive until he goes 6 months without an episode. Thank you for letting me help with the patient's care. CHARLOTTE WOLF MD Jun 17, 2020 12:51
[2020-06-17] MEDS: ACETAMINOPHEN 325 MG TABLET. PO PRN (14:14)
[2020-06-17 15:00] VITALS: BP 129/79
--- NOTE | 2020-06-17 15:03 | NUR ---
SW following for discharge planning. Spoke with RN and reviewed chart. Pt from home with spouse. Pt self-pay and [facility] following. Pt has a hx of Malaria. Pt admitted with AMS and a possible fall. Pt on IV Zofran and PT/PT to evaluate. Pt on a regular diet and COVID pending. ID consulted, no need for IV abx. Neurology consulted. SW following.
--- NOTE | 2020-06-17 15:55 | EEG ---
DATE OF SERVICE: 06/17/2020 ELECTROENCEPHALOGRAM EEG NUMBER: [id number] OBJECTIVE: The patient is a 50-year-old male with possible new seizure yesterday. DESCRIPTION: This is a digital study. Electrodes are placed according to the international 10-20 system. Bipolar and referential montages are available. Activation procedures typically include hyperventilation and intermittent photic stimulation. INTERPRETATION: The waking background consists of an 8-9 Hz, 50-100 microvolt activity, symmetrically distributed over parietooccipital regions and reactive to eye opening. Hyperventilation and intermittent photic stimulation are noncontributory. Stage 2 sleep is achieved with normal electroencephalogram patterns. IMPRESSION: This electroencephalogram with the patient awake and asleep is within normal limits. There is no focal, paroxysmal, or epileptiform activity. Thank you for letting us help with the patient's care. CHARLOTTE WOLF MD DR: DONNY/megan JOB#: [id number] / [id number]
--- NOTE | 2020-06-17 16:41 | RAD ---
EXAM: Brain MRI without contrast. HISTORY: Altered mental status. Trauma. Seizure. TECHNIQUE: Multiplanar, multisequence magnetic resonance imaging of the brain was performed without c ontrast. COMPARISON: CT dated 06/16/2020. FINDINGS: There is no restricted diffusion to suggest acute or subacute infarction. There is no susce ptibility effect to suggest hemorrhage. There is no mass effect or midline shift. There is T2/FLAIR h yperintensity within the right parietotemporal junction. The orbits are unremarkable. There is opacif ication of the right frontal sinus. There is mild ethmoid sinus mucosal thickening. There is minimal fluid within the inferior left mastoid air cells. There are normal flow voids within the cerebral ves sels. There is no suspicious calvarial lesion. IMPRESSION: 1. Small focal area signal change within the right parietal temporal junction, a nonspecific finding. The absence of effacement of the overlying sulci to suggest mass effect in this region favors change s due to chronic infarction. There is no expansion of the cortex or effacement of the overlying sulci to suggest a mass, cerebritis or post ictal changes in this patient with a history of a seizure. Tiffanie rt-term follow-up with a brain MRI with and without contrast in approximately 6 weeks can be performe d to confirm stability. 2. Frontal and ethmoid sinus disease. Electronically signed by: Xochilt Serrano MD (06/17/2020 4:39 PM) [id number]
[2020-06-17] MEDS ORDERED: PROCHLORPERAZINE 10 MG/2 ML VIAL. IV PRN (17:00)
[2020-06-17] MEDS ORDERED: ONDANSETRON PF 4 MG/2 ML VIAL. IVP PRN (17:00)
[2020-06-17] MEDS: IV NORMAL SALINE 1000ML BAG 1,000 ML IV SCH (17:16)
[2020-06-17] MEDS ORDERED: ENOXAPARIN 40 MG/0.4 ML SYRINGE. SQ ONE (18:30)
[2020-06-17 18:54] VITALS: BP 122/73
[2020-06-17 23:00] VITALS: BP 163/87
[2020-06-18 02:54] VITALS: BP 158/82
[2020-06-18] MEDS: IV NORMAL SALINE 1000ML BAG 1,000 ML IV SCH (04:49)
[2020-06-18] MEDS: quiNINE 324 MG CAPSULE. PO SCH (04:49)
[2020-06-18 06:36] LABS: BASO % 0 % (0-3); EOS # 0.1 x10^3/uL (0.0-0.7); EOS % 1 % (0-3); HEMATOCRIT 41.6 % (39.0-53.0); HEMOGLOBIN 14.4 g/dL (13.0-17.5); LYMPH # 2.2 x10^3/uL (1.0-4.8); LYMPH % 21 % (24-48); MEAN CORPUSCULAR HEMOGLOBIN 31 pg (25-35); MEAN CORPUSCULAR HGB CONC 35 g/dL (31-37); MEAN CORPUSCULAR VOLUME 89 fL (79-100); MONO # 0.9 x10^3/uL (0.0-1.1); MONO % 8 % (0-9); NEUT # 7.5 x10^3/uL (1.8-7.7); NEUT % 70 % (31-73); PLATELET COUNT 139 x10^3/uL (140-400); RED BLOOD COUNT 4.68 x10^6/uL (4.30-5.70); RED CELL DISTRIBUTION WIDTH 13.6 % (11.5-14.5); WHITE BLOOD COUNT 10.7 x10^3/uL (4.0-11.0)
[2020-06-18 06:43] LABS: CALCIUM 8.5 mg/dL (8.5-10.1); CREATININE 1.3 mg/dL (0.7-1.3); GFR 58.4; POTASSIUM 3.7 mmol/L (3.5-5.1)
[2020-06-18 07:30] VITALS: BP 141/85
[2020-06-18] MEDS: ACETAMINOPHEN 325 MG TABLET. PO PRN (09:02)
[2020-06-18 11:09] VITALS: BP 136/75
--- NOTE | 2020-06-18 11:26 | PDOC ---
Infectious Disease Note Subjective Subjective Patient is feeling really good ROS ROS No nausea vomiting diarrhea Vital Sign Vital Signs Vital Signs Date Time Temp Pulse Resp B/P (MAP) Pulse Ox O2 Delivery O2 Flow Rate FiO2 06/18/20 11:09 98.2 95 20 136/75 (95) 97 Room Air 98.2 Physical Exam PHYSICAL EXAM GENERAL: Alert, oriented gentleman, not in distress. VITAL SIGNS: Stable, afebrile. HEENT: Both pupils are round and reacting. Conjunctivae are congested bilaterally. There are no large bruises or contusions on the head. The tongue has injury. NECK: Supple, no JVP, no lymphadenopathy. LUNGS: Clear. HEART: S1, S2 regular. ABDOMEN: Benign. EXTREMITIES: No edema, cyanosis. SKIN: Unremarkable, other than some bruising present. NEUROLOGIC: The patient is alert, awake and appropriate. No focal neurologic deficit. Labs Lab Laboratory Tests Test 06/18/20 05:40 White Blood Count 10.7 x10^3/uL (4.0-11.0) Red Blood Count 4.68 x10^6/uL (4.30-5.70) Hemoglobin 14.4 g/dL (13.0-17.5) Hematocrit 41.6 % (39.0-53.0) Mean Corpuscular Volume 89 fL (79-100) Mean Corpuscular Hemoglobin 31 pg (25-35) Mean Corpuscular Hemoglobin Concent 35 g/dL (31-37) Red Cell Distribution Width 13.6 % (11.5-14.5) Platelet Count 139 x10^3/uL (140-400) Neutrophils (%) (Auto) 70 % (31-73) Lymphocytes (%) (Auto) 21 % (24-48) Monocytes (%) (Auto) 8 % (0-9) Eosinophils (%) (Auto) 1 % (0-3) Basophils (%) (Auto) 0 % (0-3) Neutrophils # (Auto) 7.5 x10^3/uL (1.8-7.7) Lymphocytes # (Auto) 2.2 x10^3/uL (1.0-4.8) Monocytes # (Auto) 0.9 x10^3/uL (0.0-1.1) Eosinophils # (Auto) 0.1 x10^3/uL (0.0-0.7) Basophils # (Auto) 0.0 x10^3/uL (0.0-0.2) Sodium Level 142 mmol/L (136-145) Potassium Level 3.7 mmol/L (3.5-5.1) Chloride Level 106 mmol/L (98-107) Carbon Dioxide Level 26 mmol/L (21-32) Anion Gap 10 (6-14) Blood Urea Nitrogen 11 mg/dL (8-26) Creatinine 1.3 mg/dL (0.7-1.3) Estimated GFR (Cockcroft-Gault) 58.4 Glucose Level 87 mg/dL (70-99) Calcium Level 8.5 mg/dL (8.5-10.1) Micro Microbiology 06/16/20 CSF Gram Stain - Final, Complete 06/16/20 Blood Culture - Preliminary, Resulted NO GROWTH AFTER 1 DAY 06/16/20 Urine Culture - Final, Complete Objective Assessment IMPRESSION: 1. Unresponsiveness, most likely the patient had seizure. 2. Leukocytosis, likely reactive. 3. Slight lactic acidosis. 4. Elevated liver function tests. 5. History of malaria in 1990. Plan Plan of Care WBC normal No evidence for infection Patient can be discharged from the infectious disease standpoint of view MARYJANE ALANIS MD Jun 18, 2020 11:26
--- NOTE | 2020-06-18 11:31 | DISCH ---
DISCHARGE INSTRUCTIONS Condition on Discharge Condition on Discharge: Stable Activity After Discharge Activity Instructions for Disc: Activity as tolerated Lifting Instructions after Dis: Do not lift >10 pounds Driving Instructions after Dis: Do not drive today, No driving for 6 months Diet after Discharge Diet after Discharge: Cardiac Contacting the DRMor after DC Call your doctor for: If your condition worsens Follow-Up Follow up with: PCP within 2 weeks of discharge Follow Up With: Neurology as scheduled. Cardiology as needed for heart monitoring RADHA PURI MD Jun 18, 2020 11:31
--- NOTE | 2020-06-18 12:00 | PDOC ---
PROGRESS NOTES Date of Service DATE: 06/18/20 TIME: 11:57 Assessment Problems Medical Problems: (1) Altered mental status Status: Acute New onset seizure versus convulsive syncope due to general illness. His EEG is negative, MRI shows no clinically relevant findings, he does have a previous history of syncope, so although he had a large number of injuries, I still feel this was convulsive syncope. Note normal lumbar puncture Leukocytosis, slight lactic acidosis, elevated liver function tests, history of malaria in 1990. Nonspecific small focal area signal change within the right parietal temporal junction Plan Hold on starting anticonvulsants, risk, benefits, alternatives discussed Follow-up with me in 2 months and we will decide about lifting driving restrict ion at that time as well as whether he needs a repeat MRI Okay for discharge Objective Vital Signs Date Time Temp Pulse Resp B/P (MAP) Pulse Ox O2 Delivery O2 Flow Rate FiO2 06/18/20 11:09 98.2 95 20 136/75 (95) 97 Room Air 98.2 Intake and Output 06/18/20 07:00 Intake Total 20 ml Balance 20 ml Intake Oral 20 ml # Voids 2 PHYSICAL EXAM Subconjunctival hemorrhages better Alert. Oriented to time, place and person. PERRL. EOMI. CN: no focal findings. Muscle tone: normal. Muscle strength: 5/5 DTR: 2+ Plantar reflex: Lexer Gait: Normal. Sensory exam: no abnormal findings. No cerebellar signs elicited. Review of Relevant I have reviewed the following items antoina (where applicable) has been applied. Labs Laboratory Tests Test 06/16/20 17:45 06/16/20 18:11 06/16/20 22:08 06/16/20 22:52 White Blood Count 23.8 x10^3/uL (4.0-11.0) Red Blood Count 5.63 x10^6/uL (4.30-5.70) Hemoglobin 17.1 g/dL (13.0-17.5) Hematocrit 50.0 % (39.0-53.0) Mean Corpuscular Volume 89 fL (79-100) Mean Corpuscular Hemoglobin 31 pg (25-35) Mean Corpuscular Hemoglobin Concent 34 g/dL (31-37) Red Cell Distribution Width 13.6 % (11.5-14.5) Platelet Count 199 x10^3/uL (140-400) Neutrophils (%) (Auto) 91 % (31-73) Lymphocytes (%) (Auto) 5 % (24-48) Monocytes (%) (Auto) 4 % (0-9) Eosinophils (%) (Auto) 0 % (0-3) Basophils (%) (Auto) 0 % (0-3) Neutrophils # (Auto) 21.7 x10^3/uL (1.8-7.7) Lymphocytes # (Auto) 1.2 x10^3/uL (1.0-4.8) Monocytes # (Auto) 0.9 x10^3/uL (0.0-1.1) Eosinophils # (Auto) 0.0 x10^3/uL (0.0-0.7) Basophils # (Auto) 0.0 x10^3/uL (0.0-0.2) Segmented Neutrophils % 91 % (35-66) Band Neutrophils % 1 % (0-9) Lymphocytes % 7 % (24-48) Monocytes % 1 % (0-10) Platelet Estimate Adequate (ADEQUATE) Sodium Level 138 mmol/L (136-145) Potassium Level 3.6 mmol/L (3.5-5.1) Chloride Level 104 mmol/L (98-107) Carbon Dioxide Level 23 mmol/L (21-32) Anion Gap 11 (6-14) Blood Urea Nitrogen 14 mg/dL (8-26) Creatinine 1.4 mg/dL (0.7-1.3) Estimated GFR (Cockcroft-Gault) 53.6 BUN/Creatinine Ratio 10 (6-20) Glucose Level 124 mg/dL (70-99) Lactic Acid Level 3.5 mmol/L (0.4-2.0) 3.0 mmol/L (0.4-2.0) Calcium Level 9.2 mg/dL (8.5-10.1) Magnesium Level 2.7 mg/dL (1.8-2.4) Total Bilirubin 0.3 mg/dL (0.2-1.0) Aspartate Amino Transf (AST/SGOT) 100 U/L (15-37) Alanine Aminotransferase (ALT/SGPT) 189 U/L (16-63) Alkaline Phosphatase 106 U/L (46-116) Ammonia 40 mcmol/L (11-34) Troponin I Quantitative < 0.017 ng/mL (0.000-0.055) Total Protein 8.0 g/dL (6.4-8.2) Albumin 4.3 g/dL (3.4-5.0) Albumin/Globulin Ratio 1.2 (1.0-1.7) Salicylates Level < 2.8 mg/dL (2.8-20.0) Salicylate Last Dose Date Unknown Salicylate Last Dose Time Unknown Acetaminophen Level < 2 mcg/ml (10-30) Acetaminophen Last Dose Date Unknown Acetaminophen Last Dose Time Unknown Ethyl Alcohol Level < 10 mg/dL (0-10) Urine Collection Type Void Urine Color Yellow Urine Clarity Cloudy Urine pH 5.0 (<5.0-8.0) Urine Specific [place] 1.015 (1.000-1.030) Urine Protein 30 mg/dL (NEG-TRACE) Urine Glucose (UA) Negative mg/dL (NEG) Urine Ketones (Stick) Negative mg/dL (NEG) Urine Blood Moderate (NEG) Urine Nitrite Negative (NEG) Urine Bilirubin Negative (NEG) Urine Urobilinogen Dipstick 0.2 mg/dL (0.2 mg/dL) Urine Leukocyte Esterase Negative (NEG) Urine RBC 11-20 /HPF (0-2) Urine WBC 11-20 /HPF (0-4) Urine Squamous Epithelial Cells Few /LPF Urine Amorphous Sediment Present /HPF Urine Bacteria 0 /HPF (0-FEW) Urine Hyaline Casts Moderate /HPF Urine Granular Casts Moderate /HPF Urine Opiates Screen Neg (NEG) Urine Methadone Screen Neg (NEG) Urine Barbiturates Neg (NEG) Urine Phencyclidine Screen Neg (NEG) Urine Amphetamine/Methamphetamine Neg (NEG) Urine Benzodiazepines Screen Neg (NEG) Urine Cocaine Screen Neg (NEG) Urine Cannabinoids Screen Pos (NEG) Urine Ethyl Alcohol Neg (NEG) CSF Color Colorless CSF Clarity Clear CSF WBC 2 /cmm (Not Established) CSF RBC 5 /cmm (Not Established) CSF Glucose 82 mg/dL (37-70) CSF Total Protein 78.0 mg/dL (15.0-45.0) Test 06/17/20 00:18 06/18/20 05:40 Coronavirus (PCR) Not detected (Not Detected) White Blood Count 10.7 x10^3/uL (4.0-11.0) Red Blood Count 4.68 x10^6/uL (4.30-5.70) Hemoglobin 14.4 g/dL (13.0-17.5) Hematocrit 41.6 % (39.0-53.0) Mean Corpuscular Volume 89 fL (79-100) Mean Corpuscular Hemoglobin 31 pg (25-35) Mean Corpuscular Hemoglobin Concent 35 g/dL (31-37) Red Cell Distribution Width 13.6 % (11.5-14.5) Platelet Count 139 x10^3/uL (140-400) Neutrophils (%) (Auto) 70 % (31-73) Lymphocytes (%) (Auto) 21 % (24-48) Monocytes (%) (Auto) 8 % (0-9) Eosinophils (%) (Auto) 1 % (0-3) Basophils (%) (Auto) 0 % (0-3) Neutrophils # (Auto) 7.5 x10^3/uL (1.8-7.7) Lymphocytes # (Auto) 2.2 x10^3/uL (1.0-4.8) Monocytes # (Auto) 0.9 x10^3/uL (0.0-1.1) Eosinophils # (Auto) 0.1 x10^3/uL (0.0-0.7) Basophils # (Auto) 0.0 x10^3/uL (0.0-0.2) Sodium Level 142 mmol/L (136-145) Potassium Level 3.7 mmol/L (3.5-5.1) Chloride Level 106 mmol/L (98-107) Carbon Dioxide Level 26 mmol/L (21-32) Anion Gap 10 (6-14) Blood Urea Nitrogen 11 mg/dL (8-26) Creatinine 1.3 mg/dL (0.7-1.3) Estimated GFR (Cockcroft-Gault) 58.4 Glucose Level 87 mg/dL (70-99) Calcium Level 8.5 mg/dL (8.5-10.1) Laboratory Tests Test 06/18/20 05:40 White Blood Count 10.7 x10^3/uL (4.0-11.0) Red Blood Count 4.68 x10^6/uL (4.30-5.70) Hemoglobin 14.4 g/dL (13.0-17.5) Hematocrit 41.6 % (39.0-53.0) Mean Corpuscular Volume 89 fL (79-100) Mean Corpuscular Hemoglobin 31 pg (25-35) Mean Corpuscular Hemoglobin Concent 35 g/dL (31-37) Red Cell Distribution Width 13.6 % (11.5-14.5) Platelet Count 139 x10^3/uL (140-400) Neutrophils (%) (Auto) 70 % (31-73) Lymphocytes (%) (Auto) 21 % (24-48) Monocytes (%) (Auto) 8 % (0-9) Eosinophils (%) (Auto) 1 % (0-3) Basophils (%) (Auto) 0 % (0-3) Neutrophils # (Auto) 7.5 x10^3/uL (1.8-7.7) Lymphocytes # (Auto) 2.2 x10^3/uL (1.0-4.8) Monocytes # (Auto) 0.9 x10^3/uL (0.0-1.1) Eosinophils # (Auto) 0.1 x10^3/uL (0.0-0.7) Basophils # (Auto) 0.0 x10^3/uL (0.0-0.2) Sodium Level 142 mmol/L (136-145) Potassium Level 3.7 mmol/L (3.5-5.1) Chloride Level 106 mmol/L (98-107) Carbon Dioxide Level 26 mmol/L (21-32) Anion Gap 10 (6-14) Blood Urea Nitrogen 11 mg/dL (8-26) Creatinine 1.3 mg/dL (0.7-1.3) Estimated GFR (Cockcroft-Gault) 58.4 Glucose Level 87 mg/dL (70-99) Calcium Level 8.5 mg/dL (8.5-10.1) Microbiology 06/16/20 CSF Gram Stain - Final, Complete 06/16/20 Blood Culture - Preliminary, Resulted NO GROWTH AFTER 1 DAY 06/16/20 Urine Culture - Final, Complete Medications Current Medications Sodium Chloride 1,000 ml @ 1,000 mls/hr 1X ONCE IV Last administered on 06/16/20at 18:34; Start 06/16/20 at 18:15; Stop 06/16/20 at 19:14; Status DC Sodium Chloride 1,000 ml @ 1,000 mls/hr 1X ONCE IV Last administered on 06/16/20at 19:10; Start 06/16/20 at 18:15; Stop 06/16/20 at 19:14; Status DC Piperacillin Sod/ Tazobactam Sod 3.375 gm/Sodium Chloride 50 ml @ 100 mls/hr 1X ONCE IV ; Start 06/16/20 at 18:15; Stop 06/16/20 at 18:37; Status DC Vancomycin HCl 1.5 gm/Sodium Chloride 500 ml @ 250 mls/hr 1X ONCE IV ; Start 06/16/20 at 18:15; Stop 06/16/20 at 20:14; Status UNV Vancomycin HCl 2 gm/Sodium Chloride 500 ml @ 250 mls/hr 1X ONCE IV Last administered on 06/16/20at 19:47; Start 06/16/20 at 18:30; Stop 06/16/20 at 20:29; Status DC Ceftriaxone Sodium (Rocephin) 2 gm 1X ONCE IVP Last administered on 06/16/20at 19:09; Start 06/16/20 at 18:45; Stop 06/16/20 at 18:46; Status DC Acyclovir Sodium 780 mg/Dextrose 265.6 ml @ 265.6 mls/ hr Q8HRS IV Last administered on 06/17/20at 05:49; Start 06/17/20 at 06:00; Stop 06/17/20 at 14:40; Status DC Acyclovir Sodium 780 mg/Dextrose 265.6 ml @ 265.6 mls/ hr ONCE ONCE IV Last administered on 06/16/20at 19:11; Start 06/16/20 at 19:00; Stop 06/16/20 at 19:59; Status DC Iohexol (Omnipaque 350 Mg/ml) 90 ml 1X ONCE IV Last administered on 06/16/20at 19:12; Start 06/16/20 at 19:00; Stop 06/16/20 at 19:01; Status DC Info (CONTRAST GIVEN -- Rx MONITORING) 1 each PRN DAILY PRN MC SEE COMMENTS; Start 06/16/20 at 19:00; Stop 06/18/20 at 18:59 Fentanyl Citrate (Fentanyl 2ml Vial) 100 mcg 1X ONCE IVP Last administered on 06/16/20at 22:32; Start 06/16/20 at 22:30; Stop 06/16/20 at 22:31; Status DC Quinine Sulfate (Qualaquin) 324 mg Q8HRS PO Last administered on 06/18/20at 04:49; Start 06/17/20 at 06:00 Sodium Chloride 1,000 ml @ 1,000 mls/hr 1X ONCE IV Last administered on 06/17/20at 00:40; Start 06/17/20 at 00:30; Stop 06/17/20 at 01:29; Status DC Quinine Sulfate (Qualaquin) 324 mg ONCE ONCE PO Last administered on 06/17/20at 01:07; Start 06/17/20 at 00:30; Stop 06/17/20 at 00:31; Status DC Acetaminophen (Tylenol) 1,000 mg 1X ONCE PO Last administered on 06/17/20at 03:48; Start 06/17/20 at 03:45; Stop 06/17/20 at 03:52; Status DC Ondansetron HCl (Zofran) 4 mg PRN Q8HRS PRN IV NAUSEA/VOMITING Last administered on 06/17/20at 10:20; Start 06/17/20 at 05:00; Stop 06/17/20 at 17:01; Status DC Morphine Sulfate (Morphine Sulfate) 4 mg PRN Q2HR PRN IV PAIN Last administered on 06/17/20at 10:20; Start 06/17/20 at 05:00; Stop 06/17/20 at 14:29; Status DC Acetaminophen (Tylenol) 650 mg PRN Q6HRS PRN PO MILD PAIN / TEMP > 100.3'F Last administered on 06/18/20at 09:02; Start 06/17/20 at 12:30 Sodium Chloride 1,000 ml @ 100 mls/hr Q10H IV Last administered on 06/18/20at 04:49; Start 06/17/20 at 17:00 Ondansetron HCl (Zofran) 4 mg PRN Q6HRS PRN IVP NAUSEA/VOMITING; Start 06/17/20 at 17:00 Prochlorperazine Edisylate (Compazine) 10 mg PRN Q6HRS PRN IV NAUSEA/VOMITING- 2ND CHOICE Last administered on 06/17/20at 17:15; Start 06/17/20 at 17:00 Enoxaparin Sodium (Lovenox 40mg Syringe) 40 mg 1X ONCE SQ Last administered on 06/17/20at 19:20; Start 06/17/20 at 18:30; Stop 06/17/20 at 18:31; Status DC Vitals/I & O Vital Sign - Last 24 Hours 06/17/20 06/17/20 06/17/20 06/17/20 15:00 18:54 20:10 23:00 Temp 97.7 98.4 97.8 97.7 98.4 97.8 Pulse 64 89 84 Resp 18 18 18 B/P (MAP) 129/79 (96) 122/73 (89) 163/87 (112) Pulse Ox 97 94 96 O2 Delivery Room Air Room Air Room Air Room Air 06/18/20 06/18/20 06/18/20 06/18/20 02:54 07:30 08:00 11:09 Temp 97.8 98.0 98.2 97.8 98.0 98.2 Pulse 80 105 95 Resp 18 20 20 B/P (MAP) 158/82 (107) 141/85 (103) 136/75 (95) Pulse Ox 97 96 97 O2 Delivery Room Air Room Air Room Air Room Air Intake and Output 06/17/20 06/17/20 06/18/20 15:00 23:00 07:00 Intake Total 20 ml 0 ml Balance 20 ml 0 ml Images Brain MRI without contrast. HISTORY: Altered mental status. Trauma. Seizure. TECHNIQUE: Multiplanar, multisequence magnetic resonance imaging of the brain was performed without contrast. COMPARISON: CT dated 06/16/2020. FINDINGS: There is no restricted diffusion to suggest acute or subacute infarction. There is no susceptibility effect to suggest hemorrhage. There is no mass effect or midline shift. There is T2/FLAIR hyperintensity within the right parietotemporal junction. The orbits are unremarkable. There is opacification of the right frontal sinus. There is mild ethmoid sinus mucosal thickening. There is minimal fluid within the inferior left mastoid air cells. There are normal flow voids within the cerebral vessels. There is no suspicious calvarial lesion. IMPRESSION: 1. Small focal area signal change within the right parietal temporal junction, a nonspecific finding. The absence of effacement of the overlying sulci to suggest mass effect in this region favors changes due to chronic infarction. There is no expansion of the cortex or effacement of the overlying sulci to suggest a mass, cerebritis or post ictal changes in this patient with a history of a seizure. Short-term follow-up with a brain MRI with and without contrast in approximately 6 weeks can be performed to confirm stability. 2. Frontal and ethmoid sinus disease. Justicifation of Admission Dx: Justifications for Admission: Justification of Admission Dx: N/A CHARLOTTE WOLF MD Jun 18, 2020 12:00
--- NOTE | 2020-06-18 12:17 | NUR ---
Discharge Note: PT DISCHARGED HOME WITH SELF CARE. PT LEFT FACILITY VIA PRIVATE VEHICLE WITH AT 1215. PT STABLE AND ALERT UPON DISCHARGE. PT PIV REMOVED FROM L AC WITHOUT COMPLICATIONS, BANDAGE APPLIED. PT EDUCATED ABOUT DISCHARGE INSTRUCTIONS, DISCHARGE MEDICATIONS, AND FOLLOW-UP CARE/INSTRUCTIONS. PT VOICED NO CONCERNS AT THIS TIME. PT LEFT WITH ALL PERSONAL BELONGINGS. NIKOLAI BOLTON6 [facility] Discharge instructions and discharge home medications reviewed with Patient and a copy given. All questions have been answered and understanding verbalized.
--- NOTE | 2020-06-18 15:33 | NUR ---
SW following for discharge planning. Spoke with RN and reviewed chart. Pt's COVID result negative. PT note says home, independent. Pt on room air and oral medications. No SW needs identified. Pt discharged home self-care today, 06/18. No further SW needs at this time.
[2020-06-19 12:12] LABS: ALBUMIN,SERUM 4.7 g/dL (4.0-5.0); CSF IGG INDEX 0.5 (0.0-0.7)
== END 2020-06-18 12:19 | disposition home or self-care (01) | DRG 100 ==
LOC: ER 17:21 → 6 SOUTH 06-17 04:55
PROVIDERS: ADMIT Internal Medicine; ATTEND Internal Medicine
PROC: 009U3ZX Drainage of Spinal Canal, Percutaneous Approach, Diagnostic (ICD-10-PCS; 2020-06-16)
PROC: 4A00X4Z Measurement of Central Nervous Electrical Activity, External Approach (ICD-10-PCS; principal; 2020-06-17)
DX: R56.9 Unspecified convulsions (principal); N17.0 Acute kidney failure with tubular necrosis; E87.2 Acidosis; D72.828 Other elevated white blood cell count; N28.1 Cyst of kidney, acquired; R32 Unspecified urinary incontinence; S09.93XA Unspecified injury of face, initial encounter; W18.30XA Fall on same level, unspecified, initial encounter; M47.812 Spondylosis without myelopathy or radiculopathy, cervical region; Z86.13 Personal history of malaria; Y93.89 Activity, other specified; Y92.89 Other specified places as the place of occurrence of the external cause; Y99.8 Other external cause status; Z20.822 Contact with and (suspected) exposure to COVID-19
CPT/HCPCS: 36415; 70450; 70551; 71045; 71275; 72125; 74177; 80048; 80053; 80307; 80329; 81001; 82140; 82787; 82945; 83605; 83735; 84157; 84484; 85007; 85025; 87040; 87071; 87075; 87086; 89051; 93005; 95816; 96361; 96365; 96366; 96368; 96375; G0480; J0133; J0696; J0780; J1650; J2270; J2405; J3010; J3370; J7030; J7040; J7060; Q9967; U0003; 99285-25; G0378